=== PATIENT | female | born 1995 | race Caucasian/White ===

== ENCOUNTER 2019-06-26 02:25 | Emergency (ER) | payer BC ==
[2019-06-26] MEDS ORDERED: Lidocaine 1% with EPINEPHrine 1:100,000 20 ML MDV INJECT ONE (03:06)
--- NOTE | 2019-06-26 04:39 | EDM.PDOC ---
ED HPI GENERAL MEDICAL PROBLEM - General Chief Complaint: Bite:Animal, Insect Stated Complaint: DOG BITE ON NOSE Time Seen by Provider: 06/26/19 02:42 Source of Information: Reports: Patient History Limitations: Reports: No Limitations - History of Present Illness INITIAL COMMENTS - FREE TEXT/NARRATIVE: TRIAGE NOTE -- Pt states was bit buy dog about 45 min ago. Is pt's own dog and states immunizations are UTD> Pt has 3.5 cm laceration to nose. [ End ] ABOVE. ACTUALLY TWO PARALLEL LACERATIONS RIGHT SIDE OF NOSE SEE BELOW. 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 ED EXAM, ANIMAL BITE - Physical Exam Exam: See Below Exam Limited By: No Limitations General Appearance: Alert, WD/WN, No Apparent Distress Ears: Normal External Exam Nose: Other (TWO PARALLEL LACERATIONS RIGHT SIDE OF NOSE INFERIORLY HORIZONTAL ORIENTATION. UPPER ONE 2.2 CM LOWER ONE ABOUT 6 MM BELOW 1.7 CM. UPPER NE FULL THICKNESS OF SKIN EXPOSING SUPPORTING STRUCTURES, LOWER ONE NOT QUITE FULL THICKNESS. NO GROSS CONTAMINATION, MARGINS ONLY MINIMALLY MACERATED IN PLACES.) Throat/Mouth: Normal Inspection Head: Atraumatic, Normocephalic Neck: Supple Respiratory/Chest: Lungs Clear Cardiovascular: Regular Rate, Rhythm GI/Abdominal: Soft Back Exam: Normal Inspection Extremities: Normal Inspection Neurological: Alert, Oriented, Normal Cognition Psychiatric: Normal Affect, Normal Mood Skin Exam: Normal Color, Warm/Dry ED ANIMAL BITE PROCEDURES - Additional/Other Procedure(s) Other (Free Text) Procedure(s): WOUND CLOSURE UNDER STERILE TECHNIQUE. LOCAL ANES WITH 1% LIDOCAINE WITH EPI. TOTAL 5 ML USED. WOUNDS IRRIGATED AND INSPECTED. CLOSURE WITH BLACK NYLON SIMPLE INTERRUPTED SUTURES. SIX 5-0 AND 2 6-0 SUTURES UPPER WOUND. THREE 5-0 AND ONE 6-0 LOWER WOUND. PATIENT TOLERATED WELL NO COMPLICATIONS. Course - Vital Signs Last Recorded V/S: Last Vital Signs Temp 36.4 C 06/26/19 02:36 Pulse 82 06/26/19 02:36 Resp 18 06/26/19 02:36 BP 122/86 06/26/19 02:36 Pulse Ox 97 06/26/19 02:36 - Orders/Labs/Meds Orders: Active Orders 24 hr Category Date Time Status Vaccines to be Administered [RC] PER UNIT ROUTINE Care 06/26/19 04:46 Ordered Diphth,Pertuss(Acell),Tet Vac [Adacel] Med 06/26/19 04:46 Once 0.5 ml IM .ONCE ONE Medication Orders Diphtheria/Tetanus/Acell Pertussis (Adacel) 0.5 ml IM .ONCE ONE Stop: 06/26/19 04:47 Meds: Medications Generic Name Dose Route Start Last Admin Trade Name Freq PRN Reason Stop Dose Admin Diphtheria/Tetanus/Acell Pertussis 0.5 ml 06/26/19 04:46 Adacel IM 06/26/19 04:47 .ONCE ONE Discontinued Medications Generic Name Dose Route Start Last Admin Trade Name Freq PRN Reason Stop Dose Admin Lidocaine/Epinephrine 20 ml 06/26/19 03:06 Xylocaine 1% With Epinephrine 1:100,000 INJECT 06/26/19 03:07 ONETIME ONE Departure - Departure Time of Disposition: 04:44 Disposition: Home, Self-Care 01 Condition: Good Clinical Impression: Laceration of nose without complication Qualifiers: Encounter type: initial encounter Qualified Code(s): S01.21XA - Laceration without foreign body of nose, initial encounter Dog bite Qualifiers: Encounter type: initial encounter Qualified Code(s): W54.0XXA - Bitten by dog, initial encounter - Discharge Information Referrals: Cinda Díaz PA-C [Primary Care Provider] - Forms: ED Department Discharge Additional Instructions: AFTER 24 HOURS GENTLY CLEANSE WOUNDS WITH HYDROGEN PEROXIDE. CLEANSE DAILY. RETURN TO ER OR GET MEDICAL ARTTEN RIGHT AWAY FOR REDNESS, PAIN, FEVER, DISCHARGE FROM WOUNDS. SUTURES OUT IN 7 DAYS. Sepsis Event Note - Evaluation Sepsis Screening Result: No Definite Risk - Focused Exam Vital Signs: Vital Signs Temp Pulse Resp BP Pulse Ox 06/26/19 02:36 36.4 C 82 18 122/86 97 Date Exam was Performed: 06/26/19 Time Exam was Performed: 04:47 - My Orders Last 24 Hours: My Active Orders 06/26/19 04:46 Vaccines to be Administered [RC] PER UNIT ROUTINE Diphth,Pertuss(Acell),Tet Vac [Adacel] 0.5 ml IM .ONCE ONE - Assessment/Plan Last 24 Hours: My Active Orders 06/26/19 04:46 Vaccines to be Administered [RC] PER UNIT ROUTINE Diphth,Pertuss(Acell),Tet Vac [Adacel] 0.5 ml IM .ONCE ONE
[2019-06-26] MEDS ORDERED: Diphtheria,Pertussis(Acell),Tetanus Vaccine 0.5 ML Syringe IM ONE (04:46)
== END 2019-06-26 05:00 | disposition home or self-care (01) ==
LOC: JD.ED 02:25
DX: S01.21XA Laceration without foreign body of nose, initial encounter (principal); Z23 Encounter for immunization; W54.0XXA Bitten by dog, initial encounter
CPT/HCPCS: 12013; 90471; 90715; 99283